=== PATIENT | male | born 1980 | race Caucasian/White ===

== ENCOUNTER 2018-05-11 17:02 | Emergency (ER) | payer MEDICAID ==
[2018-05-11] MEDS ORDERED: Lidocaine 2% Gel 5 mL TP ONE (17:46)
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
== END 2018-05-11 18:47 | disposition home or self-care (01) ==
LOC: ER 17:02
DX: S90.512A Abrasion, left ankle, initial encounter (principal); S90.511A Abrasion, right ankle, initial encounter; S50.811A Abrasion of right forearm, initial encounter; S30.810A Abrasion of lower back and pelvis, initial encounter; V29.9XXA Motorcycle rider (driver) (passenger) injured in unspecified traffic accident, initial encounter; Y93.89 Activity, other specified; Y92.89 Other specified places as the place of occurrence of the external cause; Y99.8 Other external cause status
CPT/HCPCS: A4217; Z7502

== ENCOUNTER 2018-06-18 16:36 | Emergency (ER) | payer MEDICAID ==
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
== END 2018-06-18 18:02 | disposition home or self-care (01) ==
LOC: ER 16:36
DX: S31.21XA Laceration without foreign body of penis, initial encounter (principal); X58.XXXA Exposure to other specified factors, initial encounter; Y93.89 Activity, other specified; Y92.89 Other specified places as the place of occurrence of the external cause; Y99.8 Other external cause status
CPT/HCPCS: Z7502